=== PATIENT | female | born 1970 | race Caucasian/White ===

== ENCOUNTER 2024-06-26 11:44 | Inpatient (IN) | payer MEDICAID, OTHER ==
[~2024-06-26] VITALS: Ht 172.7 cm; Wt 129.7 kg
[2024-06-26] MEDS: ONDANSETRON 4MG ODT PO ONE (12:56)
[2024-06-26 14:33] LABS: BASOPHILS % 0.2 % (0.0-2.0); EOSINOPHILS % 0.9 % (0.0-5.0); HEMATOCRIT. 43.3 % (36.0-48.0); LYMPHOCYTES % 21.6 % (20.0-50.0); MEAN CORPUSCULAR HGB CONC 32.3 g/dL (31.0-37.0); MEAN CORPUSCULAR VOLUME 86.5 fL (81.0-99.0); MEAN PLATELET VOLUME 10.4 fl (7.4-10.4); MONOCYTES % 7.1 % (2.0-8.0); NEUTROPHILS % 70.2 % (40.0-76.0); PLATELET 180 x1000/uL (130-400); RED CELL DISTRIBUTION WIDTH 15.7 % (11.6-14.6)
[2024-06-26 14:38] LABS: CARBON DIOXIDE 28 mEq/L (21-32); CHLORIDE 104 mEq/L (98-107); SODIUM 141 mEq/L (136-145)
[2024-06-26 14:39] LABS: CALCIUM 11.4 mg/dL (8.7-10.4)
[2024-06-26 14:43] LABS: CREATININE 1.1 mg/dL (0.6-1.0)
[2024-06-26 14:44] LABS: GLUCOSE 100 mg/dL (70-105); UREA NITROGEN BLOOD 18 mg/dL (9-23)
[2024-06-26 14:45] LABS: ALANINE AMINOTRANSFERASE 89 IU/L (10-49); ALBUMIN 4.3 g/dL (3.2-4.8); ASPARTATE AMINOTRANSFERASE 51 IU/L (<34); TROPONIN I HIGH SENSITIVITY 8 ng/L (3.0-34)
[2024-06-26 14:46] LABS: BILIRUBIN DIRECT 0.4 mg/dL (<=3.0); BILIRUBIN TOTAL 1.1 mg/dL (0.1-1.0); PROTEIN TOTAL 7.2 g/dL (6.0-8.3)
[2024-06-26 14:58] LABS: PROTHROMBIN TIME 11.4 sec (9.6-11.0)
[2024-06-26] MEDS: POTASSIUM CHLORIDE 20MEQ TABLET SR PO ONE (16:13)
[2024-06-26] MEDS ORDERED: KCL 20MEQ/100ML PREMIX 100 ML IV ONE (16:15)
[2024-06-26 18:16] LABS: TROPONIN I HIGH SENSITIVITY 9 ng/L (3.0-34)
[2024-06-26] MEDS: PANTOPRAZOLE SODIUM 40 MG/VIAL IV ONE (19:26)
[2024-06-26] MEDS: METOCLOPRAMIDE HCL 10MG/2ML VIAL IV ONE (19:26)
[2024-06-26] MEDS: KCL 20MEQ/100ML PREMIX 100 ML IV NR (21:20)
[2024-06-27 00:05] VITALS: BP 123/55; PULSE 69; RESP 18; TEMP 35.9732
[2024-06-27] MEDS ORDERED: LEVO75TA7 PO (01:41)
[2024-06-27 04:00] VITALS: BP 114/66; PULSE 76; RESP 20; TEMP 36.22512; O2SAT 97
[2024-06-27] MEDS: LEVOTHYROXINE SODIUM 75MCG TABLET PO SCH (06:34)
[2024-06-27 08:00] VITALS: BP 133/76; PULSE 66; RESP 20; TEMP 36.55848; O2SAT 97
[2024-06-27] MEDS: METOPROLOL TARTRATE 25MG TABLET PO SCH (08:39)
[2024-06-27] MEDS: ASPIRIN 81MG TABLET PO SCH (08:39)
[2024-06-27 12:33] LABS: BASOPHILS % 0.4 % (0.0-2.0); EOSINOPHILS % 2.5 % (0.0-5.0); HEMATOCRIT. 42.2 % (36.0-48.0); HEMOGLOBIN. 13.8 g/dL (12.0-16.0); LYMPHOCYTES % 26.4 % (20.0-50.0); MEAN CORPUSCULAR HEMOGLOBIN 28.5 pg (28.0-32.0); MEAN CORPUSCULAR HGB CONC 32.7 g/dL (31.0-37.0); MEAN CORPUSCULAR VOLUME 87.1 fL (81.0-99.0); MEAN PLATELET VOLUME 10.7 fl (7.4-10.4); MONOCYTES % 6.6 % (2.0-8.0); NEUTROPHILS % 64.1 % (40.0-76.0); PLATELET 206 x1000/uL (130-400); RED BLOOD CELL COUNT 4.85 mill/uL (4.2-5.4); RED CELL DISTRIBUTION WIDTH 16.1 % (11.6-14.6); WHITE BLOOD COUNT 12.2 x1000/uL (4.5-11.0)
[2024-06-27 12:38] LABS: CHLORIDE 106 mEq/L (98-107); POTASSIUM 3.1 mEq/L (3.5-5.1); SODIUM 140 mEq/L (136-145)
[2024-06-27 12:39] LABS: CALCIUM 10.5 mg/dL (8.7-10.4); CARBON DIOXIDE 25 mEq/L (21-32)
[2024-06-27 12:44] LABS: GLUCOSE 93 mg/dL (70-105); UREA NITROGEN BLOOD 14 mg/dL (9-23)
[2024-06-27 12:46] LABS: ALANINE AMINOTRANSFERASE 69 IU/L (10-49); ASPARTATE AMINOTRANSFERASE 37 IU/L (<34); BILIRUBIN TOTAL 0.9 mg/dL (0.1-1.0); PROTEIN TOTAL 6.8 g/dL (6.0-8.3)
[2024-06-27 16:00] VITALS: BP 122/67; RESP 20; TEMP 36.28068; O2SAT 97
[2024-06-27 17:59] LABS: GLUCOSE URINE NEGATIVE (NEGATIVE); KETONES URINE 1+ (NEGATIVE)
[2024-06-27] MEDS: METOCLOPRAMIDE HCL 10MG/2ML VIAL IV SCH (18:00)
[2024-06-27 18:01] LABS: *AMPHETAMINES SCREEN URINE NEGATIVE (NEGATIVE); *BARBITURATES SCREEN URINE NEGATIVE (NEGATIVE); *BENZODIAZEPINES SCREEN URINE NEGATIVE (NEGATIVE); *COCAINE SCREEN URINE NEGATIVE (NEGATIVE); METHADONE URINE SCREEN NEGATIVE (NEGATIVE)
[2024-06-27 18:02] LABS: CANNABINOID URINE SCREEN NEGATIVE (NEGATIVE); ECSTASY MDMA SCREEN URINE NEGATIVE (NEGATIVE); OPIATES URINE SCREEN NEGATIVE (NEGATIVE); PHENCYCLIDINE URINE SCREEN NEGATIVE (NEGATIVE)
[2024-06-27 18:06] LABS: CLARITY URINE TURBID (CLEAR); COLOR URINE ORANGE (YELLOW)
[2024-06-27 18:07] LABS: NITRITE URINE NEGATIVE (NEGATIVE); OCCULT BLOOD URINE NEGATIVE (NEGATIVE); PROTEIN URINE TRACE (NEGATIVE); SPECIFIC GRAVITY URINE 1.027 (1.005-1.030)
[2024-06-27] MEDS: POTASSIUM CHLORIDE 20MEQ TABLET SR PO NR (18:07)
[2024-06-27 18:08] LABS: LEUKOCYTE ESTERASE URINE NEGATIVE (NEGATIVE)
[2024-06-27 18:13] LABS: BACTERIA URINE 4+; RBC URINE 0-2 /hpf (0-2); SQUAMOUS EPITHELIAL CELL URINE FEW /lpf (RARE/1+); WBC URINE 0-2 /hpf (0-2)
[2024-06-27 20:00] VITALS: BP 128/80; PULSE 100; RESP 19; TEMP 36.78072; O2SAT 100
[2024-06-27] MEDS: PANTOPRAZOLE 40MG DR TABLET PO SCH (21:06)
[2024-06-28] VITALS: BP 144/75; PULSE 78; RESP 20; TEMP 36.33624; O2SAT 99
[2024-06-28 04:00] VITALS: BP 119/69; PULSE 72; RESP 19; TEMP 36.44736; O2SAT 100
[2024-06-28 08:00] VITALS: BP 117/52; PULSE 50; RESP 18; TEMP 36.16956; O2SAT 100
[2024-06-28 12:00] VITALS: BP_SYST 102; BP_SYST 119; BP_DIAS 54; BP_DIAS 61; PULSE 54; PULSE 88; RESP 18; TEMP 36.28068; TEMP 36.33624; O2SAT 98; O2SAT 99
[2024-06-28] MEDS ORDERED: HYDROXYZINE 25MG TABLET PO PRN (13:15)
[2024-06-28 16:00] VITALS: BP 118/53; PULSE 53; RESP 18; TEMP 36.22512; O2SAT 97
[2024-06-28 20:00] VITALS: BP 122/65; PULSE 55; RESP 18; TEMP 36.28068; O2SAT 98
[2024-06-29] VITALS: BP 111/59; PULSE 54; RESP 18; TEMP 36.55848; O2SAT 98
[2024-06-29] MEDS: HYDROCODONE/ACETAMINOPHEN 10/325MG TABLET PO NR (03:32)
[2024-06-29 04:00] VITALS: BP 116/67; PULSE 55; RESP 18; TEMP 36.22512; O2SAT 98
[2024-06-29 04:00] LABS: BASOPHILS % 0.4 % (0.0-2.0); EOSINOPHILS % 4.1 % (0.0-5.0); HEMATOCRIT. 39.9 % (36.0-48.0); HEMOGLOBIN. 13.2 g/dL (12.0-16.0); LYMPHOCYTES % 26.4 % (20.0-50.0); MEAN CORPUSCULAR HEMOGLOBIN 28.7 pg (28.0-32.0); MEAN CORPUSCULAR HGB CONC 33.1 g/dL (31.0-37.0); MEAN CORPUSCULAR VOLUME 86.9 fL (81.0-99.0); MEAN PLATELET VOLUME 10.5 fl (7.4-10.4); MONOCYTES % 7.6 % (2.0-8.0); NEUTROPHILS % 61.5 % (40.0-76.0); PLATELET 141 x1000/uL (130-400); RED BLOOD CELL COUNT 4.59 mill/uL (4.2-5.4); RED CELL DISTRIBUTION WIDTH 15.8 % (11.6-14.6); WHITE BLOOD COUNT 8.4 x1000/uL (4.5-11.0)
[2024-06-29 04:08] LABS: CHLORIDE 107 mEq/L (98-107); POTASSIUM 3.2 mEq/L (3.5-5.1); SODIUM 141 mEq/L (136-145)
[2024-06-29 04:09] LABS: CALCIUM 10.8 mg/dL (8.7-10.4); CARBON DIOXIDE 24 mEq/L (21-32)
[2024-06-29 04:14] LABS: CREATININE 0.9 mg/dL (0.6-1.0); GLUCOSE 95 mg/dL (70-105); UREA NITROGEN BLOOD 13 mg/dL (9-23)
[2024-06-29 04:15] LABS: TROPONIN I HIGH SENSITIVITY 9 ng/L (3.0-34)
[2024-06-29 08:00] VITALS: BP 113/71; PULSE 53; RESP 18; TEMP 35.72508; O2SAT 99
[2024-06-29 12:00] VITALS: BP 117/59; PULSE 56; RESP 18; TEMP 36.114; TEMP 36.11400; O2SAT 99
[2024-06-29 12:18] VITALS: BP 117/59; PULSE 56; TEMP 97; O2SAT 99
== END 2024-06-29 16:00 | disposition home or self-care (01) | DRG 243 ==
LOC: ER 11:44 → 7EST 18:27 → EDBEDREQ 18:31 → EDBEDREQTM 20:54
PROVIDERS: ADMIT Internal Medicine; ATTEND Internal Medicine
DX: K21.9 Gastro-esophageal reflux disease without esophagitis (principal); E03.2 Hypothyroidism due to medicaments and other exogenous substances; E66.01 Morbid (severe) obesity due to excess calories; E87.6 Hypokalemia; F31.9 Bipolar disorder, unspecified; F41.9 Anxiety disorder, unspecified; Z90.49 Acquired absence of other specified parts of digestive tract; Z68.41 Body mass index [BMI] 40.0-44.9, adult
CPT/HCPCS: 36415; 71045; 76705; 80048; 80053; 80076; 80305; 81003; 83880; 84484; 85025; 93005; 99291; J2470; J2765; J3480; Q0162